=== PATIENT | male | born 1955 | race Caucasian/White ===

== ENCOUNTER 2019-09-13 01:54 | Inpatient (IN) | payer MEDICAID ==
--- NOTE | 2019-09-13 02:24 | EDM.PDOC ---
ED HPI GENERAL MEDICAL PROBLEM - General Chief Complaint: Gastrointestinal Problem Stated Complaint: RECTAL BLEEDING Time Seen by Provider: 09/13/19 02:17 Source of Information: Reports: Patient History Limitations: Reports: No Limitations - History of Present Illness INITIAL COMMENTS - FREE TEXT/NARRATIVE: Patient presents after an episode this evening of rectal bleeding. He has a history of 2 cardiac stents placed in July following episodes of exertional chest tightness and exertional dyspnea. He has been participating in cardiac rehabilitation locally since the stents were placed and attends that uneventfully. He is on aspirin 81 mg and Plavix 75 mg daily since his stents. Several days ago, he began to get an upper abdominal discomfort/burning feeling/ fullness sensation. No nausea or vomiting. He previously had an upper GI hemorrhage in 2016 but living in the [place] area. Endoscopy showed what sounds like some type of proximal duodenal lesion which was clamped or cauterized in someway. He has noticed, when moving around home in the last few days that he was getting dizzy when he stood up and also would have some shortness of breath when climbing stairs in their home. He got up to go to the bathroom earlier today and when standing up and walking he felt off balance enough that he actually bumped into the wall. He felt as though he needed to have a bowel movement tonight, went into the bathroom and had only a small amount of stool produced. He was getting up to leave again and then had a feeling like another bowel movement was pending and with that he had piece of maroon-colored stool along with a variety of other softer stool-like material. Based on the constellation of all of those symptoms, he came here for further evaluation. He was seen by his irish moss gatherer 2 weeks post stenting but no changes were made to medications at that time. Onset: Today Duration: Hour(s): Improves with: Reports: None Worsens with: Reports: None - Related Data Allergies Allergy/AdvReac Type Severity Reaction Status Date / Time fish oil Allergy Airway Verified 09/13/19 02:08 Tightness Home Meds: Home Meds Aspirin [Halfprin] 81 mg PO DAILY 07/03/19 [History] Fenofibrate 160 mg PO BEDTIME 07/03/19 [History] Insulin Glargine,Hum.Rec.Anlog [Basaglar Marbinikpen U-100] 20 unit SQ DAILY [History] Losartan [Cozaar] 25 mg PO BEDTIME 07/03/19 [History] Pravastatin Sodium 80 mg PO DAILY 07/03/19 [History] metFORMIN [Glucophage XR] 500 mg PO DAILY 07/03/19 [History] Clopidogrel Bisulfate [Clopidogrel] 75 mg PO DAILY 09/13/19 [History] Rosuvastatin Calcium 20 mg PO BEDTIME 09/13/19 [History] ED ROS GENERAL - Review of Systems Review Of Systems: See Below Constitutional: Denies: Night Sweats HEENT: Reports: No Symptoms Respiratory: Reports: Shortness of Breath (When climbing stairs in their home and other ambulatory activity. He does not get short of breath during cardiac rehabilitation) Cardiovascular: Denies: Chest Pain GI/Abdominal: Reports: Abdominal Pain (Until 2 days ago.), Black Stool, Bloody Stool : Reports: No Symptoms Musculoskeletal: Reports: No Symptoms Neurological: Reports: Dizziness (When standing up.) ED EXAM, GI/ABD - Physical Exam Exam: See Below Text/Narrative:: He is lying on the bed in room 4 in no distress. Exam Limited By: No Limitations General Appearance: Alert, No Apparent Distress Respiratory/Chest: Lungs Clear Cardiovascular: Regular Rate, Rhythm, Tachycardia GI/Abdominal Exam: Normal Bowel Sounds, Soft, Non-Tender Rectal (Males) Exam: Normal Rectal Tone, Black Stool Course - Re-Assessments/Exams Free Text/Narrative Re-Assessment/Exam: 09/13/19 03:02 Given his description of stool changes tonight and other constitutional symptoms , he likely is having some type of gastrointestinal hemorrhage and the most likely cause would be something related to his anticoagulant use. 09/13/19 03:08 Orthostatic vital signs show a systolic pressure of 133 supine with decrease to low 100 values upon taking the sitting and standing positions. Heart rate has been in the low 100s generally. When he stood he briefly had some dizziness sensation. 09/13/19 04:07 I reviewed labs with him which show a BUNs of 51 and a hemoglobin of 11.7. He will need admission for serial monitoring and possible endoscopy. I reviewed the case with hospital service to arrange admission and further evaluation. He' ll be given a Protonix 80 mg bolus. Departure - Departure Time of Disposition: 04:05 Disposition: Admitted As Inpatient 66 Condition: Fair Clinical Impression: Gastrointestinal hemorrhage - Discharge Information Referrals: Roiko,Seun, SUPERVISOR [employer] [Primary Care Provider] -
[2019-09-13] MEDS ORDERED: Sodium Chloride 0.9% 10 ML Syringe FLUSH PRN (02:49)
[2019-09-13] MEDS ORDERED: Pantoprazole 40 MG Vial IVPUSH SCH (04:15)
[2019-09-13] MEDS: Sodium Chloride 0.9% 1,000 ML IV SCH ×3 (05:24→18:57)
[2019-09-13] MEDS ORDERED: Morphine 2 MG/ML Syringe IVPUSH PRN (05:34)
[2019-09-13] MEDS ORDERED: oxyCODONE 5 MG Tab PO PRN (05:34)
[2019-09-13] MEDS ORDERED: Ondansetron 4 MG Tab.DIS PO PRN (05:34)
[2019-09-13] MEDS ORDERED: Acetaminophen 325 MG Tab PO PRN (05:34)
[2019-09-13] MEDS ORDERED: Albuterol 0.083% 2.5 MG/3 ML Neb Soln NEB PRN (05:34)
[2019-09-13] MEDS ORDERED: Pantoprazole 40 MG Vial IV SCH ×2 (05:34→16:00)
[2019-09-13] MEDS ORDERED: Ondansetron 4 MG/2 ML SDV IV PRN (05:34)
[2019-09-13] MEDS ORDERED: Melatonin 3 MG Tab PO PRN (05:34)
[2019-09-13] MEDS ORDERED: Sodium Chloride 0.9% 1,000 ML IV ONE (06:12)
[2019-09-13] MEDS ORDERED: EPINEPHrine 1 MG/ML SDV ONE (07:01)
--- NOTE | 2019-09-13 07:01 | PCM.HP.2 ---
H&P History of Present Illness - General Date of Service: 09/13/19 Admit Problem/Dx: Admission Diagnosis/Problem Admission Diagnosis/Problem Gastrointestinal hemorrhage Source of Information: Patient, Family, Provider, RN History Limitations: Reports: No Limitations - History of Present Illness Initial Comments - Free Text/Narative: chief complaint: bloody stool This is a 64 year old male presents to the ER with Carmela via POV. He reports abdominal pain for the past 2 days, this morning at 0100 got up to go to the bathroom - had a large red colored stool became very sweating and nearly fainted. He then got up and almost fell over again. decided come to the ER. Past history of GI bleed on March 2016, he had EGD which showed a bleeding ulcer. Colonoscopy age 50 yrs an at 60 yrs, with last one September 2016. showed a diverticulitis without active bleeding. Cardiac: 07-22-2019 stents placed x 2 for blockage. last cardiac appt. 2018 reports all is well. has been going to Cardiac Rehab for the past 3 weeks. Onset of Symptoms: Reports: Today, Gradual (abdominal pain for 2 days) Duration of Symptoms: Reports: Hour(s): Location: Reports: Abdomen Quality: Reports: Ache, Burning Severity: Mild Improves with: Reports: None Worsens with: Reports: None Associated Symptoms: Reports: Diaphoresis, Nausea/Vomiting (nausea without vomiting), Shortness of Breath (chronic since August 2019), Syncope, Weakness - Related Data Allergies/Adverse Reactions: Allergies Allergy/AdvReac Type Severity Reaction Status Date / Time fish oil Allergy Airway Verified 09/13/19 02:08 Tightness Home Medications: Home Meds Aspirin [Halfprin] 81 mg PO DAILY 07/03/19 [History] Fenofibrate 160 mg PO BEDTIME 07/03/19 [History] Insulin Glargine,Hum.Rec.Anlog [Basaglar Kwikpen U-100] 20 unit SQ DAILY [History] Losartan [Cozaar] 25 mg PO BEDTIME 07/03/19 [History] Pravastatin Sodium 80 mg PO DAILY 07/03/19 [History] metFORMIN [Glucophage XR] 500 mg PO DAILY 07/03/19 [History] Clopidogrel Bisulfate [Clopidogrel] 75 mg PO DAILY 09/13/19 [History] Rosuvastatin Calcium 20 mg PO BEDTIME 09/13/19 [History] Past Medical History HEENT History: Reports: Impaired Vision Cardiovascular History: Reports: High Cholesterol, Stents, Other (See Below) Other Cardiovascular History: leaky valve, stents july 22 2019 Gastrointestinal History: Reports: GERD, GI Bleed Genitourinary History: Reports: Renal Calculus Musculoskeletal History: Reports: Fracture Endocrine/Metabolic History: Reports: Diabetes, Type II - Infectious Disease History Infectious Disease History: Reports: Chicken Pox - Past Surgical History GI Surgical History: Reports: Hernia, Inguinal Social & Family History - Family History Family Medical History: Noncontributory - Tobacco Use Smoking Status *Q: Never Smoker - Caffeine Use Caffeine Use: Reports: Coffee - Alcohol Use Days Per Week of Alcohol Use: 7 Number of Drinks Per Day: 1 Total Drinks Per Week: 7 - Recreational Drug Use Recreational Drug Use: No - Living Situation & Occupation Living situation: Reports: 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 Enjoying half-way.) H&P Review of Systems - Review of Systems: Review Of Systems: See Below General: Reports: Malaise, Other (reports no concerns at this time.) HEENT: Reports: No Symptoms Pulmonary: Reports: Shortness of Breath (for the past 3 to 4 weeks.) Cardiovascular: Reports: Dyspnea on Exertion, Lightheadedness Gastrointestinal: Reports: Abdominal Pain, Black Stool, Bloody Stool, Hematemesis, Nausea, Vomiting Genitourinary: Reports: No Symptoms Musculoskeletal: Reports: No Symptoms Skin: Reports: Pallor Psychiatric: Reports: No Symptoms Neurological: Reports: Syncope (near syncope after having a bowel movement prior to transfer to Inpatient), Weakness Hematologic/Lymphatic: Reports: Other (history of GI bleed 2015) Immunologic: Reports: No Symptoms Exam - Exam Exam: See Below - Vital Signs Vital Signs: Last Vital Signs Temp 35.3 C 09/13/19 02:28 Pulse 73 09/13/19 06:41 Resp 11 L 09/13/19 06:41 BP 112/64 09/13/19 06:41 Pulse Ox 96 09/13/19 06:41 Orthostatic Blood Pressure [ 106/64 Standing] Orthostatic Blood Pressure [ 100/59 Sitting] Orthostatic Blood Pressure [ 133/69 Supine] Weight: 88.8 kg - Exam Quality Assessment: Other General: Alert, Oriented, Cooperative, Moderate Distress HEENT: PERRLA, Conjunctiva Clear, EACs Clear, EOMI, Hearing Intact, Mucosa Moist & [place], Nares Patent Neck: Supple, Trachea Midline Lungs: Clear to Auscultation, Normal Respiratory Effort, Other Cardiovascular: Regular Rate, Regular Rhythm, Normal S1, Normal S2, Other ( murmur noted, has been evaluated by Cardiology - advised to monitor) GI/Abdominal Exam: Soft, Abnormal Bowel Sounds (hypoactive), Other (0545 vomiting and near syncope - bright red bobby and darker blood noted about 15 cc) (Male) Exam: Deferred Rectal (Males) Exam: Deferred, Black Stool, Bloody Stool, Heme + Stool, Other ( at 0545 patient walked to bathroom had a large black red stool, became symptomatic) Extremities: Normal Inspection, Normal Range of Motion, Non-Tender, No Pedal Edema, Normal Capillary Refill Peripheral Pulses: 2+: Radial (L), Radial (R) Skin: Cool, Moist Neurological: Reflexes Equal Bilateral, Strength Equal Bilateral Neuro Extensive - Mental Status: Alert, Oriented x3, Normal Mood/Affect Psychiatric: Alert, Normal Affect, Normal Mood - Patient Data Lab Results Last 24 hrs: Laboratory Results - last 24 hr 09/13/19 09/13/19 09/13/19 Range/Units 02:50 02:52 02:55 WBC 9.8 (4.5-11.0) K/uL RBC 3.90 L (4.30-5.90) M/uL Hgb 11.7 L (12.0-15.0) g/dL Hct 35.8 L (40.0-54.0) % MCV 92 (80-98) fL MCH 30 (27-31) pg MCHC 33 (32-36) % Plt Count 156 (150-400) K/uL Neut % (Auto) 72 H (36-66) % Lymph % (Auto) 16 L (24-44) % Mckinley % (Auto) 9 H (2-6) % Eos % (Auto) 2 (2-4) % Baso % (Auto) 1 (0-1) % PT (9.5-12.0) sec INR (0.80-1.20) Sodium 140 (140-148) mmol/L Potassium 5.0 (3.6-5.2) mmol/L Chloride 107 (100-108) mmol/L Carbon Dioxide 25 (21-32) mmol/L Anion Gap 7.7 (5.0-14.0) mmol/L BUN 52 H (7-18) mg/dL Creatinine 1.2 (0.8-1.3) mg/dL Est Cr Clr Drug Dosing 72.31 mL/min Estimated GFR (MDRD) > 60 (>60) Glucose 207 H (74-106) mg/dL Calcium 8.7 (8.5-10.1) mg/dL Total Bilirubin 0.5 (0.2-1.0) mg/dL AST 12 L (15-37) U/L ALT 15 (12-78) U/L Alkaline Phosphatase 51 (46-116) U/L Total Protein 6.2 L (6.4-8.2) g/dL Albumin 2.8 L (3.4-5.0) g/dL Globulin 3.4 (2.3-3.5) g/dL Albumin/Globulin Ratio 0.8 L (1.2-2.2) Blood Type O POSITIVE Crossmatch See Detail 09/13/19 Range/Units 02:55 WBC (4.5-11.0) K/uL RBC (4.30-5.90) M/uL Hgb (12.0-15.0) g/dL Hct (40.0-54.0) % MCV (80-98) fL MCH (27-31) pg MCHC (32-36) % Plt Count (150-400) K/uL Neut % (Auto) (36-66) % Lymph % (Auto) (24-44) % Mckinley % (Auto) (2-6) % Eos % (Auto) (2-4) % Baso % (Auto) (0-1) % PT 14.0 H (9.5-12.0) sec INR 1.32 H (0.80-1.20) Sodium (140-148) mmol/L Potassium (3.6-5.2) mmol/L Chloride (100-108) mmol/L Carbon Dioxide (21-32) mmol/L Anion Gap (5.0-14.0) mmol/L BUN (7-18) mg/dL Creatinine (0.8-1.3) mg/dL Est Cr Clr Drug Dosing mL/min Estimated GFR (MDRD) (>60) Glucose (74-106) mg/dL Calcium (8.5-10.1) mg/dL Total Bilirubin (0.2-1.0) mg/dL AST (15-37) U/L ALT (12-78) U/L Alkaline Phosphatase (46-116) U/L Total Protein (6.4-8.2) g/dL Albumin (3.4-5.0) g/dL Globulin (2.3-3.5) g/dL Albumin/Globulin Ratio (1.2-2.2) Blood Type Crossmatch Result Diagrams: 09/13/19 02:55 09/13/19 02:52 Jose Results Last 24 hrs: Microbiology 09/13/19 03:48 Stool Occult Blood (JOSE) - Final Stool / Feces Sepsis Event Note - Evaluation Sepsis Screening Result: No Definite Risk - Focused Exam Vital Signs: Vital Signs Temp Pulse Resp BP Pulse Ox 09/13/19 06:41 73 11 L 112/64 96 09/13/19 06:26 78 12 105/60 96 09/13/19 06:10 79 16 105/60 96 09/13/19 04:11 72 18 119/60 09/13/19 02:28 35.3 C 100 14 108/69 98 09/13/19 02:27 35.3 C 100 14 108/69 98 Date Exam was Performed: 09/13/19 Time Exam was Performed: 06:50 - Problem List (1) Gastrointestinal hemorrhage SNOMED Code(s): 06676865 ICD Code: K92.2 - GASTROINTESTINAL HEMORRHAGE, UNSPECIFIED Status: Acute Priority: High Current Visit: Yes Qualifiers: GI bleed type/associated pathology: unspecified gastrointestinal hemorrhage type Qualified Code(s): K92.2 - Gastrointestinal hemorrhage, unspecified (2) Diabetes type 2, controlled SNOMED Code(s): 66869453, 542657305 ICD Code: E11.9 - TYPE 2 DIABETES MELLITUS WITHOUT COMPLICATIONS Status: Acute Priority: High Current Visit: Yes Qualifiers: Diabetes mellitus termite technician insulin use: with termite technician use (3) History of heart artery stent SNOMED Code(s): 134845303, 001081411 ICD Code: Z95.5 - PRESENCE OF CORONARY ANGIOPLASTY IMPLANT AND GRAFT Status : Chronic Priority: Low Current Visit: Yes Problem List Initiated/Reviewed/Updated: Yes Orders Last 24hrs: Active Orders 24 hr Category Date Time Status Transfer Patient (Change bed) [ADT] Routine ADT 09/13/19 06:33 Ordered Ambulate [RC] QID Care 09/13/19 05:34 Active Cardiac Monitoring [RC] CONTINUOUS Care 09/13/19 05:34 Active EKG Documentation Completion [RC] ASDIRECTED Care 09/13/19 06:12 Active Head of Bed Elevation [RC] ASDIRECTED Care 09/13/19 05:34 Active Intake and Output [RC] QSHIFT Care 09/13/19 05:34 Active Notify Provider Consults [RC] ASDIRECTED Care 09/13/19 05:34 Active Notify Provider Vital Signs [RC] ASDIRECTED Care 09/13/19 05:34 Active Oxygen Therapy [RC] PRN Care 09/13/19 05:34 Active Pulse Oximetry [RC] PRN Care 09/13/19 05:34 Active RT Aerosol Therapy [RC] ASDIRECTED Care 09/13/19 05:34 Active Up ad Hermelinda [RC] ASDIRECTED Care 09/13/19 05:34 Active VTE/DVT Education [RC] Per Unit Routine Care 09/13/19 05:34 Active Vital Signs [RC] Q4H Care 09/13/19 05:34 Active Consult to Physician [CONS] Routine Cons 09/13/19 05:34 Ordered Nothing per Oral Now Diet [DIET] Diet 09/13/19 Breakfast Active BASIC METABOLIC PANEL,BMP [CHEM] AM Lab 09/14/19 05:11 Ordered CBC WITH AUTO DIFF [HEME] AM Lab 09/14/19 05:11 Ordered HEMOGLOBIN [HEME] Routine Lab 09/13/19 06:43 Received HEMOGLOBIN/HEMATOCRIT,HH [HEME] Routine Lab 09/13/19 11:10 Ordered PATIENT RETYPE [BBK] Urgent Lab 09/13/19 02:50 Results RED BLOOD CELLS LP [BBK] Urgent Lab 09/13/19 02:50 Results TROPONIN I [CHEM] Urgent Lab 09/13/19 06:12 Ordered TYPE AND SCREEN [BBK] Urgent Lab 09/13/19 02:50 Results Acetaminophen [Tylenol] Med 09/13/19 05:34 Active 650 mg PO Q4H PRN Albuterol [Proventil Neb Soln] Med 09/13/19 05:34 Active 2.5 mg NEB Q4H PRN Insulin Glarg,Human.Rec.Analog [LantUS Solostar] Med 09/13/19 09:00 Active 20 units SUBCUT DAILY Losartan [Cozaar] Med 09/13/19 21:00 Active 25 mg PO BEDTIME Melatonin Med 09/13/19 05:34 Active 6 mg PO BEDTIME PRN Morphine Med 09/13/19 05:34 Active 2 mg IVPUSH Q2H PRN Ondansetron [Zofran ODT] Med 09/13/19 05:34 Active 4 mg PO Q6H PRN Ondansetron [Zofran] Med 09/13/19 05:34 Active 4 mg IV Q4H PRN Pantoprazole [ProTONIX IV] Med 09/13/19 05:34 Active 40 mg IV Q12H Pravastatin Sodium [Pravastatin Sodium] Med 09/13/19 21:00 Active 80 mg PO BEDTIME Sodium Chloride 0.9% [Normal Saline] 1,000 ml Med 09/13/19 05:15 Active IV ASDIRECTED Sodium Chloride 0.9% [Saline Flush] Med 09/13/19 02:49 Active 10 ml FLUSH ASDIRECTED PRN oxyCODONE Med 09/13/19 05:34 Active 5 mg PO Q4H PRN Resuscitation Status Routine Resus Stat 09/13/19 05:11 Ordered EKG 12 Lead [EK] Urgent Ther 09/13/19 06:12 Ordered Medication Orders Acetaminophen (Tylenol) 650 mg PO Q4H PRN PRN Reason: Pain (Mild 1-3)/fever Albuterol (Proventil Neb Soln) 2.5 mg NEB Q4H PRN PRN Reason: Shortness Of Breath/wheezing Sodium Chloride (Normal Saline) 1,000 mls @ 125 mls/hr IV ASDIRECTED ISABEL Last Admin: 09/13/19 05:24 Dose: 125 mls/hr Insulin Glargine (Lantus Solostar) 20 units SUBCUT DAILY ISABEL Losartan Potassium (Cozaar) 25 mg PO BEDTIME ISABEL Melatonin (Melatonin) 6 mg PO BEDTIME PRN PRN Reason: Sleep Morphine Sulfate (Morphine) 2 mg IVPUSH Q2H PRN PRN Reason: Pain (severe 7-10) Non-Formulary Medication (Pravastatin Sodium [Pravastatin Sodium]) 80 mg PO BEDTIME ISABEL Ondansetron HCl (Zofran Odt) 4 mg PO Q6H PRN PRN Reason: Nausea able to take PO Ondansetron HCl (Zofran) 4 mg IV Q4H PRN PRN Reason: Nausea/Vomiting Oxycodone HCl (Oxycodone) 5 mg PO Q4H PRN PRN Reason: Pain (moderate 4-6) Pantoprazole Sodium (Protonix Iv) 40 mg IV Q12H ISABEL Sodium Chloride (Saline Flush) 10 ml FLUSH ASDIRECTED PRN PRN Reason: Keep Vein Open Assessment/Plan Comment:: ASSESSMENT / PLAN chief complaint: bloody stool This is a 64 year old male presents to the ER with Carmela via POV. He reports abdominal pain for the past 2 days, this morning at 0100 got up to go to the bathroom - had a large red colored stool became very sweating and nearly fainted. He then got up and almost fell over again. decided come to the ER. Past history of GI bleed on March 2016, he had EGD which showed a bleeding ulcer. Colonoscopy age 50 yrs an at 60 yrs, with last one September 2016. showed a diverticulitis without active bleeding. Cardiac: 07-22-2019 stents placed x 2 for blockage. last cardiac appt. 2018 reports all is well. has been going to Cardiac Rehab for the past 3 weeks. Lab values = CBC unremarkable WBC 9.8 hemoglobin 11.7 hemocrit 35.8, INR 1.32, BUN 52, Cr. 1.2, Glucose 207. IN ER given IV Protonix 80 mg. Mr. Avilez was in the process of being transferred to [address] [place] [address], when he went to the bathroom at 0545, had a large dark and bloody stool, vomited mucous and red blood, very ashen-near white in color, diaphoresis, unable to read a blood pressure, near fainted, with the help of [address] in a wheelchair, returned to bed. blood pressure at 106/59. able to answer question. very calm. New ordered: Contacted Dr. Zepeda - he will do EGD this morning - Patient and notified of this and agree with plan of care. Contacted Dr. Frazier, Hospitalist - transfer care to ICU -2 nd IV access, give 1 liter of fluid now. -stat labs - troponin, blood glucose, hemoglobin, EKG -athletic monitor -type and cross for 4 units of blood total -ICU status GI Bleed - Mr. Avilez will be going to surgery first then ICU bed after surgery. Patient and agree with plan of care. -Admit to ICU -NPO -IV Fluids Normal Saline at 125 mL per hour -IV Protonix 40 mg every 12 hours -serial hemoglobins. -anti nausea medication ordered -And a.m. labs: CBC, BMP History of Cardiac Stents x2 07-22-2019 -continue cardiac medication -telemetry Diabetes type 2 - reports takes insulin daily, had been a diabetic for at least 15 years or more. -Long acting insulin 20 units daily -bedside blood glucose 4 times a day Maintenance issues -Orders home meds reviewed and ordered as appropriate -Nutrition: NPO -Longo catheter not indicated at this time -DVT: SCD -PPI; IV Protonix 40mg every 12 hours CODE STATUS: FULL Admission status: Admit to ICU This Patient is Admitted for Inpatient Services and is Medically Appropriate and Meets Medical Necessity for Inpatient Admission. I Reasonably Expect the Patient will Require Inpatient Services that Span a Period of Over 2 Midnights. My Rationale for Medically Necessary Inpatient Care will be Found in the Admission History & Physical and Progress Notes. I Reasonably Expect the Patient to be Discharged or Transferred within 96 Hours After Admission to this Critical [facility] Hospital. Disposition: home Primary care provider: Seun Cuellar NP Hospitalist: Dr. Frazier - Mortality Measure Prognosis:: Good
[2019-09-13] MEDS ORDERED: Midazolam 1 MG/ML 2 ML SDV ONE (07:36)
[2019-09-13] MEDS ORDERED: fentaNYL 100 MCG/2 ML SDV ONE (07:36)
[2019-09-13] MEDS ORDERED: Propofol 200 MG/20 ML SDV ONE (07:36)
[2019-09-13] MEDS ORDERED: Octreotide 100 MCG/ML SDV IVPUSH ONE (08:15)
[2019-09-13] MEDS: Sodium Chloride 0.9% 100 ML with Pantoprazole 80 MG IV SCH ×4 (08:59→18:36)
[2019-09-13] MEDS: Octreotide 500 MCG in Sodium Chloride 0.9% 497.5 ML IV SCH ×2 (08:59→19:18)
[2019-09-13] MEDS: Insulin Glargine,Human Rec. Analog 100 Units/ML 3 ML Pen SUBCUT SCH (09:00)
[2019-09-13] MEDS ORDERED: Glucose Gel 15 GM in 37.5 GM Tube PO PRN (09:04)
[2019-09-13] MEDS ORDERED: 50% Dextrose in Water 50 ML Syringe IV PRN (09:04)
--- NOTE | 2019-09-13 09:10 | PCM.PN ---
- General Info Date of Service: 09/13/19 Subjective Update: Mr. Avilez is a 64-year-old gentleman who was admitted earlier this morning with hematemesis and melena, weakness, lightheadedness, secondary to an upper GI bleed. He has noted some epigastric abdominal discomfort which was fairly mild over the past few days. Yesterday he experienced shortness of breath weakness and lightheadedness with activity. He awoke early this morning and felt very weak and lightheaded, then had a melenic appearing stool. He came into the emergency department for further evaluation. Initial hemoglobin level was 11.7, with stable vital signs. Initial plan had been for admission to the medical surgical floor, but while still in the emergency department had an episode of marked weakness with hypotension and diaphoresis. During that period of time had a large melenic appearing stool and also an episode of hematemesis. He has been seen and evaluated by Dr. Zepeda, EGD was performed showing 3 duodenal ulcers, 1 of which had a clot at the base. He was not actively bleeding at the time of EGD. - Review of Systems General: Reports: Weakness. Denies: Fever, Chills Pulmonary: Reports: Shortness of Breath. Denies: Pleuritic Chest Pain, Cough, Sputum, Hemoptysis, Wheezing Cardiovascular: Reports: Dyspnea on Exertion, Lightheadedness. Denies: Chest Pain, Palpitations, Orthopnea, PND, Edema Gastrointestinal: Reports: Abdominal Pain, Melena, Nausea, Vomiting, Other ( Hematemesis). Denies: Difficulty Swallowing, Hematochezia - Patient Data Vitals - Most Recent: Last Vital Signs Temp 97.9 F 09/13/19 08:32 Pulse 74 09/13/19 08:32 Resp 13 09/13/19 08:32 BP 105/56 L 09/13/19 08:32 Pulse Ox 95 09/13/19 08:45 Orthostatic Blood Pressure [ 106/64 Standing] Orthostatic Blood Pressure [ 100/59 Sitting] Orthostatic Blood Pressure [ 133/69 Supine] Weight - Most Recent: 201 lb 6.4 oz Lab Results Last 24 Hours: Laboratory Results - last 24 hr 09/13/19 09/13/19 09/13/19 Range/Units 02:50 02:52 02:55 WBC 9.8 (4.5-11.0) K/uL RBC 3.90 L (4.30-5.90) M/uL Hgb 11.7 L (12.0-15.0) g/dL Hct 35.8 L (40.0-54.0) % MCV 92 (80-98) fL MCH 30 (27-31) pg MCHC 33 (32-36) % Plt Count 156 (150-400) K/uL Neut % (Auto) 72 H (36-66) % Lymph % (Auto) 16 L (24-44) % [place] % (Auto) 9 H (2-6) % Eos % (Auto) 2 (2-4) % Baso % (Auto) 1 (0-1) % PT (9.5-12.0) sec INR (0.80-1.20) Sodium 140 (140-148) mmol/L Potassium 5.0 (3.6-5.2) mmol/L Chloride 107 (100-108) mmol/L Carbon Dioxide 25 (21-32) mmol/L Anion Gap 7.7 (5.0-14.0) mmol/L BUN 52 H (7-18) mg/dL Creatinine 1.2 (0.8-1.3) mg/dL Est Cr Clr Drug Dosing 72.31 mL/min Estimated GFR (MDRD) > 60 (>60) Glucose 207 H (74-106) mg/dL Calcium 8.7 (8.5-10.1) mg/dL Total Bilirubin 0.5 (0.2-1.0) mg/dL AST 12 L (15-37) U/L ALT 15 (12-78) U/L Alkaline Phosphatase 51 (46-116) U/L Troponin I (0.000-0.056) ng/mL Total Protein 6.2 L (6.4-8.2) g/dL Albumin 2.8 L (3.4-5.0) g/dL Globulin 3.4 (2.3-3.5) g/dL Albumin/Globulin Ratio 0.8 L (1.2-2.2) Blood Type O POSITIVE Gel Antibody Screen Negative Crossmatch See Detail 09/13/19 09/13/19 09/13/19 Range/Units 02:55 06:12 06:43 WBC (4.5-11.0) K/uL RBC (4.30-5.90) M/uL Hgb 10.0 L (12.0-15.0) g/dL Hct (40.0-54.0) % MCV (80-98) fL MCH (27-31) pg MCHC (32-36) % Plt Count (150-400) K/uL Neut % (Auto) (36-66) % Lymph % (Auto) (24-44) % [place] % (Auto) (2-6) % Eos % (Auto) (2-4) % Baso % (Auto) (0-1) % PT 14.0 H (9.5-12.0) sec INR 1.32 H (0.80-1.20) Sodium (140-148) mmol/L Potassium (3.6-5.2) mmol/L Chloride (100-108) mmol/L Carbon Dioxide (21-32) mmol/L Anion Gap (5.0-14.0) mmol/L BUN (7-18) mg/dL Creatinine (0.8-1.3) mg/dL Est Cr Clr Drug Dosing mL/min Estimated GFR (MDRD) (>60) Glucose (74-106) mg/dL Calcium (8.5-10.1) mg/dL Total Bilirubin (0.2-1.0) mg/dL AST (15-37) U/L ALT (12-78) U/L Alkaline Phosphatase (46-116) U/L Troponin I < 0.017 (0.000-0.056) ng/mL Total Protein (6.4-8.2) g/dL Albumin (3.4-5.0) g/dL Globulin (2.3-3.5) g/dL Albumin/Globulin Ratio (1.2-2.2) Blood Type Gel Antibody Screen Crossmatch Jose Results Last 24 Hours: Microbiology 09/13/19 03:48 Stool Occult Blood (JOSE) - Final Stool / Feces Med Orders - Current: Current Medications Acetaminophen (Tylenol) 650 mg PO Q4H PRN PRN Reason: Pain (Mild 1-3)/fever Albuterol (Proventil Neb Soln) 2.5 mg NEB Q4H PRN PRN Reason: Shortness Of Breath/wheezing Aspirin (Halfprin) 81 mg PO DAILY [facility] Clopidogrel Bisulfate (Plavix) 75 mg PO DAILY [facility] Dextrose (Glutose 15) 15 gm PO ONETIME PRN PRN Reason: Hypoglycemia Dextrose/Water (Dextrose 50% In Water) 50 ml IV ONETIME PRN PRN Reason: Hypoglycemia Sodium Chloride (Normal Saline) 1,000 mls @ 125 mls/hr IV ASDIRECTED [facility] Last Admin: 09/13/19 05:24 Dose: 125 mls/hr Octreotide Acetate 500 mcg/ (Sodium Chloride) 500 mls @ 50 mls/hr IV Q10H [facility] Last Admin: 09/13/19 08:59 Dose: 50 mcg/hr, 50 mls/hr Pantoprazole Sodium 80 mg/ (Sodium Chloride) 100 mls @ 10 mls/hr IV .Q10H [facility] Last Admin: 09/13/19 08:59 Dose: 10 mls/hr Insulin Glargine (Lantus Solostar) 20 units SUBCUT DAILY [facility] Last Admin: 09/13/19 09:00 Dose: 20 units Insulin Human Lispro (Humalog) 0 unit SUBCUT QIDACANDBED [facility]; Protocol Losartan Potassium (Cozaar) 25 mg PO BEDTIME [facility] Melatonin (Melatonin) 6 mg PO BEDTIME PRN PRN Reason: Sleep Morphine Sulfate (Morphine) 2 mg IVPUSH Q2H PRN PRN Reason: Pain (severe 7-10) Non-Formulary Medication (Rosuvastatin Calcium [Rosuvastatin Calcium]) 20 mg PO BEDTIME [facility] Ondansetron HCl (Zofran Odt) 4 mg PO Q6H PRN PRN Reason: Nausea able to take PO Ondansetron HCl (Zofran) 4 mg IV Q4H PRN PRN Reason: Nausea/Vomiting Oxycodone HCl (Oxycodone) 5 mg PO Q4H PRN PRN Reason: Pain (moderate 4-6) Pravastatin Sodium (Pravachol) 80 mg PO BEDTIME [facility] Sodium Chloride (Saline Flush) 10 ml FLUSH ASDIRECTED PRN PRN Reason: Keep Vein Open Discontinued Medications Epinephrine HCl (Adrenalin) Confirm Administered Dose 1 mg .ROUTE .STK-MED ONE Stop: 09/13/19 07:02 Fentanyl (Sublimaze) Confirm Administered Dose 100 mcg .ROUTE .STK-MED ONE Stop: 09/13/19 07:37 Sodium Chloride (Normal Saline) 1,000 mls @ 999 mls/min IV .BOLUS ONE Stop: 09/13/19 06:13 Last Admin: 09/13/19 06:24 Dose: 999 mls/min Midazolam HCl (Versed 1 Mg/Ml) Confirm Administered Dose 2 mg .ROUTE .STK-MED ONE Stop: 09/13/19 07:37 Octreotide Acetate (Sandostatin) 50 mcg IVPUSH ONETIME ONE Stop: 09/13/19 08:16 Last Admin: 09/13/19 08:33 Dose: 50 mcg Pantoprazole Sodium (Protonix Iv) 80 mg IVPUSH .BOLUS [facility] Last Admin: 09/13/19 04:16 Dose: 80 mg Pantoprazole Sodium (Protonix Iv) 40 mg IV Q12H [facility] Propofol (Diprivan 20 Ml) Confirm Administered Dose 200 mg .ROUTE .STK-MED ONE Stop: 09/13/19 07:37 - Exam General: Alert, Oriented, Cooperative, Mild Distress Lungs: Clear to Auscultation, Normal Respiratory Effort Cardiovascular: Regular Rate, Regular Rhythm, No Murmurs GI/Abdominal Exam: Soft, Non-Tender, No Organomegaly, No Distention Extremities: Non-Tender, No Pedal Edema Sepsis Event Note - Evaluation Sepsis Screening Result: No Definite Risk - Focused Exam Vital Signs: Vital Signs Temp Temp Pulse Resp BP BP Pulse Ox 09/13/19 08:45 95 09/13/19 08:32 97.9 F 74 13 105/56 L 95 09/13/19 08:20 97.2 F 68 16 96/52 L 100 09/13/19 08:15 62 14 87/44 L 100 09/13/19 08:10 68 14 75/46 L 100 09/13/19 08:05 72 18 68/43 L 99 09/13/19 08:00 97.3 F 68 20 73/42 L 99 09/13/19 07:11 77 14 123/64 99 09/13/19 06:41 73 11 L 112/64 96 09/13/19 06:26 78 12 105/60 96 09/13/19 06:10 79 16 105/60 96 09/13/19 04:11 72 18 119/60 09/13/19 02:28 95.5 F 100 14 108/69 98 12/13/19 02:27 95.5 F 100 14 108/69 98 Date Exam was Performed: 09/13/19 Time Exam was Performed: 09:05 - Problem List Review Problem List Initiated/Reviewed/Updated: Yes - My Orders Last 24 Hours: My Active Orders 09/13/19 09:00 Octreotide [SandoSTATIN] 500 mcg Sodium Chloride 0.9% [Normal Saline] 497.5 ml IV Q10H Sodium Chloride 0.9% [Normal Saline] 100 ml Pantoprazole [ProTONIX IV] 80 mg IV 10 mls/hr 09/13/19 09:04 Blood Glucose Check, Bedside [RC] QIDACANDBED Communication Order [RC] STAT Diabetes Education [RC] Click to Edit Notify Provider [RC] PRN Dextrose 50% in Water 50 ml IV ONETIME PRN Dextrose [Glutose 15] 15 gm PO ONETIME PRN 09/13/19 11:00 HGB [HEMOGLOBIN] [HEME] Stat Insulin Lispro [HumaLOG] See Protocol SUBCUT QIDACANDBED 09/13/19 11:30 GLUCOSE POC LAB TO COLLECT [POC] QIDACANDBED 09/13/19 16:30 GLUCOSE POC LAB TO COLLECT [POC] QIDACANDBED 09/13/19 17:00 HGB [HEMOGLOBIN] [HEME] Stat 09/13/19 21:00 GLUCOSE POC LAB TO COLLECT [POC] QIDACANDBED Rosuvastatin Calcium [Rosuvastatin Calcium] 20 mg PO BEDTIME 09/13/19 23:00 HGB [HEMOGLOBIN] [HEME] Stat 09/13/19 Breakfast Clear Liquid Diet [DIET] 09/14/19 07:30 GLUCOSE POC LAB TO COLLECT [POC] QIDACANDBED 09/14/19 09:00 Aspirin [Halfprin] 81 mg PO DAILY Clopidogrel [Plavix] 75 mg PO DAILY 09/14/19 11:30 GLUCOSE POC LAB TO COLLECT [POC] QIDACANDBED 09/14/19 16:30 GLUCOSE POC LAB TO COLLECT [POC] QIDACANDBED 09/14/19 21:00 GLUCOSE POC LAB TO COLLECT [POC] QIDACANDBED 09/15/19 07:30 GLUCOSE POC LAB TO COLLECT [POC] QIDACANDBED 09/15/19 11:30 GLUCOSE POC LAB TO COLLECT [POC] QIDACANDBED 09/15/19 16:30 GLUCOSE POC LAB TO COLLECT [POC] QIDACANDBED 09/15/19 21:00 GLUCOSE POC LAB TO COLLECT [POC] QIDACANDBED 09/16/19 07:30 GLUCOSE POC LAB TO COLLECT [POC] QIDACANDBED 09/16/19 11:30 GLUCOSE POC LAB TO COLLECT [POC] QIDACANDBED 09/16/19 16:30 GLUCOSE POC LAB TO COLLECT [POC] QIDACANDBED 09/16/19 21:00 GLUCOSE POC LAB TO COLLECT [POC] QIDACANDBED 09/17/19 07:30 GLUCOSE POC LAB TO COLLECT [POC] QIDACANDBED 09/17/19 11:30 GLUCOSE POC LAB TO COLLECT [POC] QIDACANDBED 09/17/19 16:30 GLUCOSE POC LAB TO COLLECT [POC] QIDACANDBED 09/17/19 21:00 GLUCOSE POC LAB TO COLLECT [POC] QIDACANDBED 09/18/19 07:30 GLUCOSE POC LAB TO COLLECT [POC] QIDACANDBED - Plan Plan:: ASSESSMENT / PLAN chief complaint: bloody stool This is a 64 year old male presents to the ER with Carmela via POV. He reports abdominal pain for the past 2 days, this morning at 0100 got up to go to the bathroom - had a large red colored stool became very sweating and nearly fainted. He then got up and almost fell over again. decided come to the ER. Past history of GI bleed on March 2016, he had EGD which showed a bleeding ulcer. Colonoscopy age 50 yrs an at 60 yrs, with last one September 2016. showed a diverticulitis without active bleeding. Cardiac: 07-22-2019 stents placed x 2 for blockage. last cardiac appt. 2018 reports all is well. has been going to Cardiac Rehab for the past 3 weeks. 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 labs: CBC, BMP -Surgical follow-up per Dr. Zepeda History of Cardiac Stents x2 07-22-2019-currently on Plavix and aspirin -continue cardiac medication -telemetry Diabetes type 2 - reports takes insulin daily, had been a diabetic for at least 15 years or more. -Long acting insulin 20 units daily -bedside blood glucose 4 times a day -Low-dose sliding scale Humalog Maintenance issues -Orders home meds reviewed and ordered as appropriate -Nutrition: Clear liquid diet -Longo catheter not indicated at this time -DVT: SCD -PPI; Protonix as above CODE STATUS: FULL Admission status: Admit to ICU This Patient is Admitted for Inpatient Services and is Medically Appropriate and Meets Medical Necessity for Inpatient Admission. I Reasonably Expect the Patient will Require Inpatient Services that Span a Period of Over 2 Midnights. My Rationale for Medically Necessary Inpatient Care will be Found in the Admission History & Physical and Progress Notes. I Reasonably Expect the Patient to be Discharged or Transferred within 96 Hours After Admission to this [facility]. Disposition: home Primary care provider: Seun Cuellar NP Hospitalist: Dr. Frazier
--- NOTE | 2019-09-13 10:37 | OR ---
DATE OF PROCEDURE: 09/13/2019 SURGEON: Casey Zepeda MD PROCEDURE: Esophagogastroduodenoscopy. FINDINGS: 1. Large amount of solid retained food in stomach. 2. Duodenal ulcers x3. COMPLICATION: None. BIOLOGY TEACHER: None. ANESTHESIA: MAC. PREOPERATIVE DIAGNOSIS: Gastrointestinal bleeding. POSTOPERATIVE DIAGNOSIS: Gastrointestinal bleeding. RISKS: Risks, benefits, alternatives, and limitations including but not limited to infection, bleeding, and aspiration were explained to the patient, who wished to proceed. PROCEDURE IN DETAIL: The patient was placed in the left lateral decubitus position. The EGD scope was introduced and advanced atraumatically to second part of the duodenum. Within the duodenum itself, the patient had 3 duodenal ulcers; 1 had a clot, the other 2 were eschar type. There was no evidence of perforation. No evidence of active bleeding. Within the stomach itself, very large amount of solid food material was remaining. On retroflexion, no abnormalities were noted. The GE junction was normal. The air was removed from the stomach. The patient tolerated the procedure well. A biopsy was also performed in the duodenum for evaluation for H. pylori. Casey Zepeda MD /[id number]
[2019-09-13] MEDS: Insulin Lispro 100 Unit/ML 3 ML KwikPen SUBCUT SCH ×3 (11:14→21:13)
[2019-09-13] MEDS ORDERED: Non-Formulary Medication 1 Each (Pravastatin Sodium [Pravastatin Sodium] 80 MG) PO SCH (21:00)
[2019-09-13] MEDS ORDERED: Losartan 25 MG Tab PO SCH (21:00)
[2019-09-13] MEDS ORDERED: Pravastatin 20 MG Tab PO SCH (21:00)
[2019-09-13] MEDS: Rosuvastatin 10 MG Tab PO SCH (21:12)
[2019-09-14] MEDS: Sodium Chloride 0.9% 1,000 ML IV SCH (03:00)
[2019-09-14] MEDS: Sodium Chloride 0.9% 100 ML with Pantoprazole 80 MG IV SCH ×4 (04:42→14:44)
[2019-09-14] MEDS: Octreotide 500 MCG in Sodium Chloride 0.9% 497.5 ML IV SCH (04:43)
[2019-09-14] MEDS: Insulin Lispro 100 Unit/ML 3 ML KwikPen SUBCUT SCH ×4 (07:52→20:22)
[2019-09-14] MEDS: Insulin Glargine,Human Rec. Analog 100 Units/ML 3 ML Pen SUBCUT SCH (08:42)
[2019-09-14] MEDS: Clopidogrel 75 MG Tab PO SCH (08:43)
[2019-09-14] MEDS: Aspirin 81 MG Tab.EC PO SCH (08:43)
--- NOTE | 2019-09-14 09:27 | PCM.PN ---
- General Info Date of Service: 09/14/19 Subjective Update: Mr. Avilez has remained stable since yesterday morning, total hemoglobin drop of approximately 4 units. Hemoglobin from last night to this morning has remained stable, he has had no hematemesis or melena. Epigastric pain has for the most part resolved. Functional Status: Reports: Pain Controlled, Tolerating Diet, Ambulating, Urinating - Review of Systems General: Reports: No Symptoms Pulmonary: Reports: No Symptoms Cardiovascular: Reports: No Symptoms Gastrointestinal: Reports: No Symptoms - Patient Data Vitals - Most Recent: Last Vital Signs Temp 98.5 F 09/14/19 04:00 Pulse 57 L 09/14/19 09:00 Resp 11 L 09/14/19 09:00 BP 114/54 L 09/14/19 09:00 Pulse Ox 97 09/14/19 09:00 Orthostatic Blood Pressure [ 106/64 Standing] Orthostatic Blood Pressure [ 100/59 Sitting] Orthostatic Blood Pressure [ 133/69 Supine] Weight - Most Recent: 201 lb 6.4 oz I&O - Last 24 Hours: Intake & Output 09/13/19 09/14/19 09/14/19 22:59 06:59 14:59 Intake Total 1274 2657 553 Output Total 700 Balance 574 2657 553 Lab Results Last 24 Hours: Laboratory Results - last 24 hr 09/13/19 09/13/19 09/13/19 Range/Units 02:50 11:03 17:14 WBC (4.5-11.0) K/uL RBC (4.30-5.90) M/uL Hgb 9.7 L 8.6 L (12.0-15.0) g/dL Hct (40.0-54.0) % MCV (80-98) fL MCH (27-31) pg MCHC (32-36) % Plt Count (150-400) K/uL Neut % (Auto) (36-66) % Lymph % (Auto) (24-44) % [place] % (Auto) (2-6) % Eos % (Auto) (2-4) % Baso % (Auto) (0-1) % Sodium (140-148) mmol/L Potassium (3.6-5.2) mmol/L Chloride (100-108) mmol/L Carbon Dioxide (21-32) mmol/L Anion Gap (5.0-14.0) mmol/L BUN (7-18) mg/dL Creatinine (0.8-1.3) mg/dL Est Cr Clr Drug Dosing mL/min Estimated GFR (MDRD) (>60) Glucose (74-106) mg/dL Calcium (8.5-10.1) mg/dL Crossmatch See Detail 09/13/19 09/14/19 09/14/19 Range/Units 22:55 05:20 05:20 WBC 6.6 (4.5-11.0) K/uL RBC 2.69 L (4.30-5.90) M/uL Hgb 8.1 L 8.0 L (12.0-15.0) g/dL Hct 25.4 L (40.0-54.0) % MCV 94 (80-98) fL MCH 30 (27-31) pg MCHC 32 (32-36) % Plt Count 123 L (150-400) K/uL Neut % (Auto) 60 (36-66) % Lymph % (Auto) 27 (24-44) % [place] % (Auto) 9 H (2-6) % Eos % (Auto) 3 (2-4) % Baso % (Auto) 1 (0-1) % Sodium 144 (140-148) mmol/L Potassium 3.8 (3.6-5.2) mmol/L Chloride 111 H (100-108) mmol/L Carbon Dioxide 26 (21-32) mmol/L Anion Gap 10.8 (5.0-14.0) mmol/L BUN 34 H (7-18) mg/dL Creatinine 1.2 (0.8-1.3) mg/dL Est Cr Clr Drug Dosing 72.31 mL/min Estimated GFR (MDRD) > 60 (>60) Glucose 98 (74-106) mg/dL Calcium 7.4 L (8.5-10.1) mg/dL Crossmatch Jose Results Last 24 Hours: Microbiology 09/13/19 03:48 Stool Occult Blood ([facility]) - Final Stool / Feces Med Orders - Current: Current Medications Acetaminophen (Tylenol) 650 mg PO Q4H PRN PRN Reason: Pain (Mild 1-3)/fever Albuterol (Proventil Neb Soln) 2.5 mg NEB Q4H PRN PRN Reason: Shortness Of Breath/wheezing Aspirin (Halfprin) 81 mg PO DAILY [facility] Last Admin: 09/14/19 08:43 Dose: 81 mg Clopidogrel Bisulfate (Plavix) 75 mg PO DAILY [facility] Last Admin: 09/14/19 08:43 Dose: 75 mg Dextrose (Glutose 15) 15 gm PO ONETIME PRN PRN Reason: Hypoglycemia Dextrose/Water (Dextrose 50% In Water) 50 ml IV ONETIME PRN PRN Reason: Hypoglycemia Pantoprazole Sodium 80 mg/ (Sodium Chloride) 100 mls @ 10 mls/hr IV .Q10H [facility] Last Admin: 09/14/19 04:42 Dose: 10 mls/hr Insulin Glargine (Lantus Solostar) 20 units SUBCUT DAILY [facility] Last Admin: 09/14/19 08:42 Dose: 20 units Insulin Human Lispro (Humalog) 0 unit SUBCUT QIDACANDBED [facility]; Protocol Last Admin: 09/14/19 07:52 Dose: Not Given Melatonin (Melatonin) 6 mg PO BEDTIME PRN PRN Reason: Sleep Morphine Sulfate (Morphine) 2 mg IVPUSH Q2H PRN PRN Reason: Pain (severe 7-10) Ondansetron HCl (Zofran Odt) 4 mg PO Q6H PRN PRN Reason: Nausea able to take PO Ondansetron HCl (Zofran) 4 mg IV Q4H PRN PRN Reason: Nausea/Vomiting Oxycodone HCl (Oxycodone) 5 mg PO Q4H PRN PRN Reason: Pain (moderate 4-6) Rosuvastatin Calcium (Crestor) 20 mg PO BEDTIME [facility] Last Admin: 09/13/19 21:12 Dose: 20 mg Sodium Chloride (Saline Flush) 10 ml FLUSH ASDIRECTED PRN PRN Reason: Keep Vein Open Discontinued Medications Epinephrine HCl (Adrenalin) Confirm Administered Dose 1 mg .ROUTE .STK-MED ONE Stop: 09/13/19 07:02 Fentanyl (Sublimaze) Confirm Administered Dose 100 mcg .ROUTE .STK-MED ONE Stop: 09/13/19 07:37 Sodium Chloride (Normal Saline) 1,000 mls @ 125 mls/hr IV ASDIRECTED [facility] Last Admin: 09/14/19 03:00 Dose: 125 mls/hr Sodium Chloride (Normal Saline) 1,000 mls @ 999 mls/min IV .BOLUS ONE Stop: 09/13/19 06:13 Last Admin: 09/13/19 06:24 Dose: 999 mls/min Octreotide Acetate 500 mcg/ (Sodium Chloride) 500 mls @ 50 mls/hr IV Q10H [facility] Last Admin: 09/14/19 04:43 Dose: 50 mcg/hr, 50 mls/hr Losartan Potassium (Cozaar) 25 mg PO BEDTIME [facility] Midazolam HCl (Versed 1 Mg/Ml) Confirm Administered Dose 2 mg .ROUTE .STK-MED ONE Stop: 09/13/19 07:37 Octreotide Acetate (Sandostatin) 50 mcg IVPUSH ONETIME ONE Stop: 09/13/19 08:16 Last Admin: 09/13/19 08:33 Dose: 50 mcg Pantoprazole Sodium (Protonix Iv) 80 mg IVPUSH .BOLUS [facility] Last Admin: 09/13/19 04:16 Dose: 80 mg Pantoprazole Sodium (Protonix Iv) 40 mg IV Q12H [facility] Propofol (Diprivan 20 Ml) Confirm Administered Dose 200 mg .ROUTE .STK-MED ONE Stop: 09/13/19 07:37 - Exam Quality Assessment: DVT Prophylaxis General: Alert, Oriented, Cooperative, No Acute Distress Lungs: Clear to Auscultation, Normal Respiratory Effort Cardiovascular: Regular Rate, Regular Rhythm, No Murmurs GI/Abdominal Exam: Soft, Non-Tender, No Organomegaly, No Distention Extremities: Non-Tender, No Pedal Edema Sepsis Event Note - Evaluation Sepsis Screening Result: No Definite Risk - Focused Exam Vital Signs: Vital Signs Temp Pulse Resp BP Pulse Ox 09/14/19 09:00 57 L 11 L 114/54 L 97 09/14/19 08:00 58 L 11 L 111/51 L 96 09/14/19 07:00 54 L 13 106/55 L 96 09/14/19 06:00 51 L 11 L 97/49 L 95 09/14/19 05:00 52 L 12 107/51 L 96 09/14/19 04:00 98.5 F 49 L 10 L 93/46 L 94 L 09/14/19 03:00 49 L 11 L 91/46 L 95 09/14/19 02:00 52 L 12 97/49 L 95 09/14/19 01:00 98.4 F 55 L 10 L 101/52 L 95 09/14/19 00:00 53 L 14 94/45 L 98 09/13/19 23:00 52 L 12 100/52 L 95 09/13/19 22:00 12 100/50 L 96 Date Exam was Performed: 09/14/19 Time Exam was Performed: 09:23 - Problem List Review Problem List Initiated/Reviewed/Updated: Yes - My Orders Last 24 Hours: My Active Orders 09/13/19 09:00 Sodium Chloride 0.9% [Normal Saline] 100 ml Pantoprazole [ProTONIX IV] 80 mg IV 10 mls/hr 09/13/19 09:04 Blood Glucose Check, Bedside [RC] QIDACANDBED Communication Order [RC] STAT Diabetes Education [RC] Click to Edit Notify Provider [RC] PRN Dextrose 50% in Water 50 ml IV ONETIME PRN Dextrose [Glutose 15] 15 gm PO ONETIME PRN 09/13/19 11:00 Insulin Lispro [HumaLOG] See Protocol SUBCUT QIDACANDBED 09/13/19 21:00 Rosuvastatin [Crestor] 20 mg PO BEDTIME 09/14/19 09:00 Aspirin [Halfprin] 81 mg PO DAILY Clopidogrel [Plavix] 75 mg PO DAILY 09/14/19 09:13 Convert IV to Saline Lock [OM.PC] Routine 09/14/19 13:00 HGB [HEMOGLOBIN] [HEME] Stat 09/14/19 21:00 HGB [HEMOGLOBIN] [HEME] Stat 09/14/19 Breakfast GI Soft Low Fiber [Soft Diet] [DIET] 09/15/19 05:00 BASIC METABOLIC PANEL,BMP [CHEM] Timed CBC WITH AUTO DIFF [HEME] Timed 09/15/19 07:30 GLUCOSE POC LAB TO COLLECT [POC] QIDACANDBED 09/15/19 11:30 GLUCOSE POC LAB TO COLLECT [POC] QIDACANDBED 09/15/19 16:30 GLUCOSE POC LAB TO COLLECT [POC] QIDACANDBED 09/15/19 21:00 GLUCOSE POC LAB TO COLLECT [POC] QIDACANDBED 09/16/19 07:30 GLUCOSE POC LAB TO COLLECT [POC] QIDACANDBED 09/16/19 11:30 GLUCOSE POC LAB TO COLLECT [POC] QIDACANDBED 09/16/19 16:30 GLUCOSE POC LAB TO COLLECT [POC] QIDACANDBED 09/16/19 21:00 GLUCOSE POC LAB TO COLLECT [POC] QIDACANDBED 09/17/19 07:30 GLUCOSE POC LAB TO COLLECT [POC] QIDACANDBED 09/17/19 11:30 GLUCOSE POC LAB TO COLLECT [POC] QIDACANDBED 09/17/19 16:30 GLUCOSE POC LAB TO COLLECT [POC] QIDACANDBED 09/17/19 21:00 GLUCOSE POC LAB TO COLLECT [POC] QIDACANDBED 09/18/19 07:30 GLUCOSE POC LAB TO COLLECT [POC] QIDACANDBED - Plan Plan:: ASSESSMENT AND PLAN Bleeding duodenal ulcer-history of previous upper GI bleed 2 years ago. Improved from admission, hemoglobin stable overnight. 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 labs: CBC, BMP -Surgical follow-up per Dr. Zepeda History of Cardiac Stents x2 07-22-2019-currently on Plavix and aspirin -continue cardiac medication -telemetry Diabetes type 2 - reports takes insulin daily, had been a diabetic for at least 15 years or more. -Long acting insulin 20 units daily -bedside blood glucose 4 times a day -Low-dose sliding scale Humalog Maintenance issues -Orders home meds reviewed and ordered as appropriate -Nutrition: Soft low residue diet -Longo catheter not indicated at this time -DVT: SCD -PPI; Protonix as above CODE STATUS: FULL Admission status: Admit to ICU This Patient is Admitted for Inpatient Services and is Medically Appropriate and Meets Medical Necessity for Inpatient Admission. I Reasonably Expect the Patient will Require Inpatient Services that Span a Period of Over 2 Midnights. My Rationale for Medically Necessary Inpatient Care will be Found in the Admission History & Physical and Progress Notes. I Reasonably Expect the Patient to be Discharged or Transferred within 96 Hours After Admission to this [facility]. Disposition: home Primary care provider: Seun Cuellar NP Hospitalist: Dr. Frazier
[2019-09-14] MEDS: Rosuvastatin 10 MG Tab PO SCH (20:22)
[2019-09-15] MEDS: Sodium Chloride 0.9% 100 ML with Pantoprazole 80 MG IV SCH ×4 (00:39→13:30)
[2019-09-15] MEDS: Insulin Lispro 100 Unit/ML 3 ML KwikPen SUBCUT SCH ×3 (07:41→16:25)
[2019-09-15] MEDS ORDERED: Potassium Chloride 20 MEQ Tab.ER PO ONE (08:45)
[2019-09-15] MEDS: Ferrous Sulfate 325 MG Tab PO SCH ×2 (08:48→16:25)
[2019-09-15] MEDS: Insulin Glargine,Human Rec. Analog 100 Units/ML 3 ML Pen SUBCUT SCH (08:48)
[2019-09-15] MEDS: Aspirin 81 MG Tab.EC PO SCH (08:49)
[2019-09-15] MEDS: Clopidogrel 75 MG Tab PO SCH (08:49)
--- NOTE | 2019-09-15 09:32 | PCM.PN ---
- General Info Date of Service: 09/15/19 Subjective Update: Mr. Nichols has had further slow drop in hemoglobin over the last 24 hours, currently 7.8. He has not had hematemesis or melena. Remains on Plavix and aspirin because of his recent coronary artery stents. Currently denies any chest pain or pressure or shortness of breath. Functional Status: Reports: Tolerating Diet, Urinating - Review of Systems General: Reports: Weakness. Denies: Fever, Chills Pulmonary: Reports: No Symptoms Cardiovascular: Reports: No Symptoms Gastrointestinal: Reports: No Symptoms - Patient Data Vitals - Most Recent: Last Vital Signs Temp 98.7 F 09/15/19 06:00 Pulse 57 L 09/15/19 08:00 Resp 23 H 09/15/19 08:00 BP 141/54 H 09/15/19 08:00 Pulse Ox 97 09/15/19 08:00 Orthostatic Blood Pressure [ 129/57 Standing] Orthostatic Blood Pressure [ 93/51 Sitting] Orthostatic Blood Pressure [ 115/55 Supine] Weight - Most Recent: 201 lb 6.4 oz I&O - Last 24 Hours: Intake & Output 09/14/19 09/15/19 09/15/19 22:59 06:59 14:59 Intake Total 1039 417 Output Total 450 Balance 1039 -33 Lab Results Last 24 Hours: Laboratory Results - last 24 hr 09/14/19 09/14/19 09/15/19 Range/Units 12:48 21:10 04:50 WBC 5.8 (4.5-11.0) K/uL RBC 2.63 L (4.30-5.90) M/uL Hgb 8.6 L 7.7 L 7.8 L (12.0-15.0) g/dL Hct 24.5 L (40.0-54.0) % MCV 93 (80-98) fL MCH 30 (27-31) pg MCHC 32 (32-36) % Plt Count 129 L (150-400) K/uL Neut % (Auto) 67 H (36-66) % Lymph % (Auto) 20 L (24-44) % [place] % (Auto) 9 H (2-6) % Eos % (Auto) 4 (2-4) % Baso % (Auto) 1 (0-1) % Sodium (140-148) mmol/L Potassium (3.6-5.2) mmol/L Chloride (100-108) mmol/L Carbon Dioxide (21-32) mmol/L Anion Gap (5.0-14.0) mmol/L BUN (7-18) mg/dL Creatinine (0.8-1.3) mg/dL Est Cr Clr Drug Dosing mL/min Estimated GFR (MDRD) (>60) Glucose (74-106) mg/dL Calcium (8.5-10.1) mg/dL 09/15/19 Range/Units 04:50 WBC (4.5-11.0) K/uL RBC (4.30-5.90) M/uL Hgb (12.0-15.0) g/dL Hct (40.0-54.0) % MCV (80-98) fL MCH (27-31) pg MCHC (32-36) % Plt Count (150-400) K/uL Neut % (Auto) (36-66) % Lymph % (Auto) (24-44) % [place] % (Auto) (2-6) % Eos % (Auto) (2-4) % Baso % (Auto) (0-1) % Sodium 144 (140-148) mmol/L Potassium 3.3 L (3.6-5.2) mmol/L Chloride 110 H (100-108) mmol/L Carbon Dioxide 27 (21-32) mmol/L Anion Gap 10.3 (5.0-14.0) mmol/L BUN 20 H (7-18) mg/dL Creatinine 1.2 (0.8-1.3) mg/dL Est Cr Clr Drug Dosing 72.31 mL/min Estimated GFR (MDRD) > 60 (>60) Glucose 91 (74-106) mg/dL Calcium 7.6 L (8.5-10.1) mg/dL Med Orders - Current: Current Medications Acetaminophen (Tylenol) 650 mg PO Q4H PRN PRN Reason: Pain (Mild 1-3)/fever Albuterol (Proventil Neb Soln) 2.5 mg NEB Q4H PRN PRN Reason: Shortness Of Breath/wheezing Aspirin (Halfprin) 81 mg PO DAILY [facility] Last Admin: 09/15/19 08:49 Dose: 81 mg Clopidogrel Bisulfate (Plavix) 75 mg PO DAILY [facility] Last Admin: 09/15/19 08:49 Dose: 75 mg Dextrose (Glutose 15) 15 gm PO ONETIME PRN PRN Reason: Hypoglycemia Dextrose/Water (Dextrose 50% In Water) 50 ml IV ONETIME PRN PRN Reason: Hypoglycemia Ferrous Sulfate (Ferrous Sulfate) 325 mg PO BIDMEALS [facility] Last Admin: 09/15/19 08:48 Dose: 325 mg Pantoprazole Sodium 80 mg/ (Sodium Chloride) 100 mls @ 10 mls/hr IV .Q10H [facility] Last Admin: 09/15/19 00:39 Dose: 10 mls/hr Insulin Glargine (Lantus Solostar) 20 units SUBCUT DAILY [facility] Last Admin: 09/15/19 08:48 Dose: 20 units Insulin Human Lispro (Humalog) 0 unit SUBCUT QIDACANDBED [facility]; Protocol Last Admin: 09/15/19 07:41 Dose: Not Given Melatonin (Melatonin) 6 mg PO BEDTIME PRN PRN Reason: Sleep Morphine Sulfate (Morphine) 2 mg IVPUSH Q2H PRN PRN Reason: Pain (severe 7-10) Ondansetron HCl (Zofran Odt) 4 mg PO Q6H PRN PRN Reason: Nausea able to take PO Ondansetron HCl (Zofran) 4 mg IV Q4H PRN PRN Reason: Nausea/Vomiting Oxycodone HCl (Oxycodone) 5 mg PO Q4H PRN PRN Reason: Pain (moderate 4-6) Pantoprazole Sodium (Protonix) 40 mg PO BIDAC [facility] Rosuvastatin Calcium (Crestor) 20 mg PO BEDTIME [facility] Last Admin: 09/14/19 20:22 Dose: 20 mg Sodium Chloride (Saline Flush) 10 ml FLUSH ASDIRECTED PRN PRN Reason: Keep Vein Open Discontinued Medications Epinephrine HCl (Adrenalin) Confirm Administered Dose 1 mg .ROUTE .STK-MED ONE Stop: 09/13/19 07:02 Fentanyl (Sublimaze) Confirm Administered Dose 100 mcg .ROUTE .STK-MED ONE Stop: 09/13/19 07:37 Sodium Chloride (Normal Saline) 1,000 mls @ 125 mls/hr IV ASDIRECTED [facility] Last Admin: 09/14/19 03:00 Dose: 125 mls/hr Sodium Chloride (Normal Saline) 1,000 mls @ 999 mls/min IV .BOLUS ONE Stop: 09/13/19 06:13 Last Admin: 09/13/19 06:24 Dose: 999 mls/min Octreotide Acetate 500 mcg/ (Sodium Chloride) 500 mls @ 50 mls/hr IV Q10H [facility] Last Admin: 09/14/19 04:43 Dose: 50 mcg/hr, 50 mls/hr Losartan Potassium (Cozaar) 25 mg PO BEDTIME [facility] Midazolam HCl (Versed 1 Mg/Ml) Confirm Administered Dose 2 mg .ROUTE .STK-MED ONE Stop: 09/13/19 07:37 Octreotide Acetate (Sandostatin) 50 mcg IVPUSH ONETIME ONE Stop: 09/13/19 08:16 Last Admin: 09/13/19 08:33 Dose: 50 mcg Pantoprazole Sodium (Protonix Iv) 80 mg IVPUSH .BOLUS [facility] Last Admin: 09/13/19 04:16 Dose: 80 mg Pantoprazole Sodium (Protonix Iv) 40 mg IV Q12H [facility] Potassium Chloride (Klor-Con M20) 40 meq PO ONETIME ONE Stop: 09/15/19 08:46 Last Admin: 09/15/19 08:48 Dose: 40 meq Propofol (Diprivan 20 Ml) Confirm Administered Dose 200 mg .ROUTE .STK-MED ONE Stop: 09/13/19 07:37 - Exam Quality Assessment: DVT Prophylaxis General: Alert, Oriented, Cooperative, No Acute Distress Lungs: Clear to Auscultation, Normal Respiratory Effort Cardiovascular: Regular Rate, Regular Rhythm, No Murmurs GI/Abdominal Exam: Soft, Non-Tender, No Organomegaly, No Distention Sepsis Event Note - Evaluation Sepsis Screening Result: No Definite Risk - Focused Exam Vital Signs: Vital Signs Temp Pulse Resp BP Pulse Ox 09/15/19 08:00 57 L 23 H 141/54 H 97 09/15/19 07:00 51 L 12 127/55 L 94 L 09/15/19 06:00 98.7 F 51 L 11 L 136/53 L 94 L 09/15/19 05:00 51 L 8 L 129/54 L 96 09/15/19 04:00 51 L 12 122/56 L 94 L 09/15/19 03:00 51 L 11 L 94/50 L 95 09/15/19 02:00 53 L 11 L 109/50 L 94 L 09/15/19 01:00 98.6 F 52 L 10 L 120/51 L 94 L 09/15/19 00:00 53 L 12 107/53 L 94 L 09/14/19 23:00 52 L 11 L 106/48 L 95 09/14/19 22:00 53 L 11 L 126/50 L 93 L Date Exam was Performed: 09/15/19 Time Exam was Performed: 09:27 - Problem List Review Problem List Initiated/Reviewed/Updated: Yes - My Orders Last 24 Hours: My Active Orders 09/14/19 09:00 Aspirin [Halfprin] 81 mg PO DAILY Clopidogrel [Plavix] 75 mg PO DAILY 09/14/19 09:13 Convert IV to Saline Lock [OM.PC] Routine 09/15/19 08:45 Ferrous Sulfate 325 mg PO BIDMEALS 09/15/19 09:17 Transfuse Red Blood Cells [COMM] Urgent 09/15/19 09:19 Pantoprazole [ProTONIX] 40 mg PO BIDAC 09/15/19 09:20 POTASSIUM,K [CHEM] Stat 09/15/19 09:24 Patient Status [ADT] Routine 09/15/19 16:00 HGB [HEMOGLOBIN] [HEME] Stat POTASSIUM,K [CHEM] Stat 09/15/19 22:00 HGB [HEMOGLOBIN] [HEME] Stat 09/16/19 05:00 BASIC METABOLIC PANEL,BMP [CHEM] Timed CBC WITH AUTO DIFF [HEME] Timed 09/16/19 07:30 GLUCOSE POC LAB TO COLLECT [POC] QIDACANDBED 09/16/19 11:30 GLUCOSE POC LAB TO COLLECT [POC] QIDACANDBED 09/16/19 16:30 GLUCOSE POC LAB TO COLLECT [POC] QIDACANDBED 09/16/19 21:00 GLUCOSE POC LAB TO COLLECT [POC] QIDACANDBED 09/17/19 07:30 GLUCOSE POC LAB TO COLLECT [POC] QIDACANDBED 09/17/19 11:30 GLUCOSE POC LAB TO COLLECT [POC] QIDACANDBED 09/17/19 16:30 GLUCOSE POC LAB TO COLLECT [POC] QIDACANDBED 09/17/19 21:00 GLUCOSE POC LAB TO COLLECT [POC] QIDACANDBED 09/18/19 07:30 GLUCOSE POC LAB TO COLLECT [POC] QIDACANDBED - Plan Plan:: ASSESSMENT AND PLAN Bleeding duodenal ulcer-history of previous upper GI bleed 2 years ago. Further drop in hemoglobin over the last 24 hours, suspect that he is slowly bleeding from the ulcer and secondary to ongoing anticoagulation. 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 labs: CBC, BMP -Surgical follow-up per Dr. Zepeda History of Cardiac Stents x2 07-22-2019-currently on Plavix and aspirin -continue cardiac medication -telemetry Diabetes type 2 - reports takes insulin daily, had been a diabetic for at least 15 years or more. -Long acting insulin 20 units daily -bedside blood glucose 4 times a day -Low-dose sliding scale Humalog Maintenance issues -Orders home meds reviewed and ordered as appropriate -Nutrition: Soft low residue diet -Longo catheter not indicated at this time -DVT: SCD -PPI; Protonix as above CODE STATUS: FULL Admission status: Admit to ICU This Patient is Admitted for Inpatient Services and is Medically Appropriate and Meets Medical Necessity for Inpatient Admission. I Reasonably Expect the Patient will Require Inpatient Services that Span a Period of Over 2 Midnights. My Rationale for Medically Necessary Inpatient Care will be Found in the Admission History & Physical and Progress Notes. I Reasonably Expect the Patient to be Discharged or Transferred within 96 Hours After Admission to this Critical [facility] Hospital. Disposition: home Primary care provider: Seun Cuellar NP Hospitalist: Dr. Frazier
[2019-09-15] MEDS: Pantoprazole 40 MG Tab.CR PO SCH ×2 (10:26→16:25)
--- NOTE | 2019-09-15 17:45 | PCM.DCSUM1 ---
Discharge Summary - Hospital Course Brief History: Mr. Avilez is a 64-year-old gentleman who was admitted through the emergency department with weakness, shortness of breath, headache, hematemesis, and melenic stool, secondary to an upper GI bleed. - Discharge Data Discharge Date: 09/15/19 Discharge Disposition: Home, Self-Care 01 Condition: Fair - Referral to Home Health Primary Care Physician: Seun Cuellar NP - Discharge Diagnosis/Problem(s) (1) Duodenal ulcer SNOMED Code(s): 41166378 ICD Code: K26.9 - DUODENAL ULCER, UNSP ACUTE OR CHRONIC, W/O HEMOR OR PERF Status: Acute Current Visit: Yes (2) Acute blood loss anemia SNOMED Code(s): 641128824 ICD Code: D62 - ACUTE POSTHEMORRHAGIC ANEMIA Status: Acute Current Visit : Yes (3) Diabetes type 2, controlled SNOMED Code(s): 18900477, 711905060 ICD Code: E11.9 - TYPE 2 DIABETES MELLITUS WITHOUT COMPLICATIONS Status: Chronic Priority: High Current Visit: Yes Qualifiers: Diabetes mellitus halfway insulin use: with halfway use (4) History of heart artery stent SNOMED Code(s): 060648727, 682845247 ICD Code: Z95.5 - PRESENCE OF CORONARY ANGIOPLASTY IMPLANT AND GRAFT Status : Chronic Priority: Low Current Visit: Yes - Patient Summary/Data Consults: Consultations 09/13/19 05:34 Consult to Physician [CONS] Routine Consulting Provider: Casey Zepeda Call Completed to Consulting Physician: Yes Reason for Consult: GI bleed Person Notified: Dr. Zepeda Date Notified: 09/13/19 Time Notified: 06:00 Hospital Course: Mr. Avilez is a 64-year-old gentleman who was admitted through the emergency department with hematemesis and melena, weakness, lightheadedness, secondary to an upper GI bleed. He had noted some epigastric abdominal discomfort which was fairly mild over the past few days. Yesterday he experienced shortness of breath weakness and lightheadedness with activity. He awoke early this morning and felt very weak and lightheaded, then had a melenic appearing stool. He came into the emergency department for further evaluation. Initial hemoglobin level was 11.7, with stable vital signs. Initial plan had been for admission to the medical surgical floor, but while still in the emergency department had an episode of marked weakness with hypotension and diaphoresis. During that period of time had a large melenic appearing stool and also an episode of hematemesis. While in the emergency department he was seen and evaluated by Dr. Zepeda, EGD was performed showing 3 duodenal ulcers, 1 of which had a clot at the base. He was not actively bleeding at the time of EGD. Was given IV fluids for hydration and started on continuous infusion of octreotide and Protonix after initial bolus doses. He did show further drop in hemoglobin down to 7.8. He was continued on his aspirin and Plavix, despite the bleeding, because of recent coronary artery stenting. Because of ongoing anticoagulation with a hemoglobin of 7.8 he was transfused 1 unit of red blood cells. Hemoglobin prior to discharge was 9.0 and he had shown no further evidence of active bleeding during the day. He had tolerated a soft low residue diet without difficulty. During hospitalization his metformin was held, he was treated with low-dose sliding scale Humalog as well as 4 times daily glucometers. Prior to discharge he had been in the chair as well as ambulating in the hallways without significant symptoms. While in the hospital he was started on iron supplement twice daily and was transitioned to oral Protonix 40 mg twice daily. He will remain on these medications after discharge. Follow- up appointment will be scheduled with his primary care provider within 1 week, hemoglobin level will be obtained at the time of that appointment. He is to return immediately to the emergency department if he notes recurrent symptoms of weakness, lightheadedness, shortness of breath, or recurrent hematemesis or melena. Activity will be as tolerated although he is instructed to hold off on cardiac rehab for 1 week. He will remain on a soft low residue diet over the next 10 days. - Patient Instructions Diet: GI Soft/Low Residue/Low Fiber Activity: As Tolerated Other/Special Instructions: Please schedule follow-up appointment with primary care provider within 1 week. Please obtain a hemoglobin level at the time of follow-up appointment. - Discharge Plan *PRESCRIPTION DRUG MONITORING PROGRAM REVIEWED*: Not Applicable *COPY OF PRESCRIPTION DRUG MONITORING REPORT IN PATIENT LARON: Not Applicable Prescriptions/Med Rec: Ferrous Sulfate 325 mg PO BIDMEALS #60 tablet Pantoprazole [ProTONIX] 40 mg PO BIDAC #30 tab.cr Home Medications: Home Meds Aspirin [Halfprin] 81 mg PO DAILY 07/03/19 [History] Fenofibrate 160 mg PO BEDTIME 07/03/19 [History] Insulin Glargine,Hum.Rec.Anlog [Basaglar Kwikpen U-100] 20 unit SQ DAILY [History] Losartan [Cozaar] 25 mg PO BEDTIME 07/03/19 [History] metFORMIN [Glucophage XR] 500 mg PO DAILY 07/03/19 [History] Clopidogrel Bisulfate [Clopidogrel] 75 mg PO DAILY 09/13/19 [History] Rosuvastatin Calcium 20 mg PO BEDTIME 09/13/19 [History] Ferrous Sulfate 325 mg PO BIDMEALS #60 tablet 09/15/19 [Rx] Pantoprazole [ProTONIX] 40 mg PO BIDAC #30 tab.cr 09/15/19 [Rx] Referrals: Seun Cuellar, [employer] [Primary Care Provider] - - Discharge Summary/Plan Comment DC Time >30 min.: No - Patient Data Vitals - Most Recent: Last Vital Signs Temp 98.3 F 09/15/19 15:40 Pulse 60 09/15/19 15:40 Resp 16 09/15/19 15:40 BP 136/60 09/15/19 15:40 Pulse Ox 94 L 09/15/19 15:40 Orthostatic Blood Pressure [ 129/57 Standing] Orthostatic Blood Pressure [ 93/51 Sitting] Orthostatic Blood Pressure [ 115/55 Supine] Weight - Most Recent: 201 lb 6.4 oz I&O - Last 24 hours: Intake & Output 09/15/19 09/15/19 09/15/19 06:59 14:59 22:59 Intake Total 417 319 Output Total 450 600 Balance -33 -281 Lab Results - Last 24 hrs: Laboratory Results - last 24 hr 09/13/19 09/14/19 09/15/19 Range/Units 02:50 21:10 04:50 WBC 5.8 (4.5-11.0) K/uL RBC 2.63 L (4.30-5.90) M/uL Hgb 7.7 L 7.8 L (12.0-15.0) g/dL Hct 24.5 L (40.0-54.0) % MCV 93 (80-98) fL MCH 30 (27-31) pg MCHC 32 (32-36) % Plt Count 129 L (150-400) K/uL Neut % (Auto) 67 H (36-66) % Lymph % (Auto) 20 L (24-44) % [place] % (Auto) 9 H (2-6) % Eos % (Auto) 4 (2-4) % Baso % (Auto) 1 (0-1) % Sodium (140-148) mmol/L Potassium (3.6-5.2) mmol/L Chloride (100-108) mmol/L Carbon Dioxide (21-32) mmol/L Anion Gap (5.0-14.0) mmol/L BUN (7-18) mg/dL Creatinine (0.8-1.3) mg/dL Est Cr Clr Drug Dosing mL/min Estimated GFR (MDRD) (>60) Glucose (74-106) mg/dL Calcium (8.5-10.1) mg/dL Blood Type O POSITIVE Gel Antibody Screen Negative Crossmatch See Detail 09/15/19 09/15/19 09/15/19 Range/Units 04:50 16:29 16:29 WBC (4.5-11.0) K/uL RBC (4.30-5.90) M/uL Hgb 9.0 L (12.0-15.0) g/dL Hct (40.0-54.0) % MCV (80-98) fL MCH (27-31) pg MCHC (32-36) % Plt Count (150-400) K/uL Neut % (Auto) (36-66) % Lymph % (Auto) (24-44) % [place] % (Auto) (2-6) % Eos % (Auto) (2-4) % Baso % (Auto) (0-1) % Sodium 144 (140-148) mmol/L Potassium 3.3 L 3.6 (3.6-5.2) mmol/L Chloride 110 H (100-108) mmol/L Carbon Dioxide 27 (21-32) mmol/L Anion Gap 10.3 (5.0-14.0) mmol/L BUN 20 H (7-18) mg/dL Creatinine 1.2 (0.8-1.3) mg/dL Est Cr Clr Drug Dosing 72.31 mL/min Estimated GFR (MDRD) > 60 (>60) Glucose 91 (74-106) mg/dL Calcium 7.6 L (8.5-10.1) mg/dL Blood Type Gel Antibody Screen Crossmatch Med Orders - Current: Current Medications Acetaminophen (Tylenol) 650 mg PO Q4H PRN PRN Reason: Pain (Mild 1-3)/fever Albuterol (Proventil Neb Soln) 2.5 mg NEB Q4H PRN PRN Reason: Shortness Of Breath/wheezing Aspirin (Halfprin) 81 mg PO DAILY [facility] Last Admin: 09/15/19 08:49 Dose: 81 mg Clopidogrel Bisulfate (Plavix) 75 mg PO DAILY [facility] Last Admin: 09/15/19 08:49 Dose: 75 mg Dextrose (Glutose 15) 15 gm PO ONETIME PRN PRN Reason: Hypoglycemia Dextrose/Water (Dextrose 50% In Water) 50 ml IV ONETIME PRN PRN Reason: Hypoglycemia Ferrous Sulfate (Ferrous Sulfate) 325 mg PO BIDMEALS [facility] Last Admin: 09/15/19 16:25 Dose: 325 mg Insulin Glargine (Lantus Solostar) 20 units SUBCUT DAILY [facility] Last Admin: 09/15/19 08:48 Dose: 20 units Insulin Human Lispro (Humalog) 0 unit SUBCUT QIDACANDBED [facility]; Protocol Last Admin: 09/15/19 16:25 Dose: Not Given Melatonin (Melatonin) 6 mg PO BEDTIME PRN PRN Reason: Sleep Morphine Sulfate (Morphine) 2 mg IVPUSH Q2H PRN PRN Reason: Pain (severe 7-10) Ondansetron HCl (Zofran Odt) 4 mg PO Q6H PRN PRN Reason: Nausea able to take PO Ondansetron HCl (Zofran) 4 mg IV Q4H PRN PRN Reason: Nausea/Vomiting Oxycodone HCl (Oxycodone) 5 mg PO Q4H PRN PRN Reason: Pain (moderate 4-6) Pantoprazole Sodium (Protonix) 40 mg PO BIDAC [facility] Last Admin: 09/15/19 16:25 Dose: 40 mg Rosuvastatin Calcium (Crestor) 20 mg PO BEDTIME [facility] Last Admin: 09/14/19 20:22 Dose: 20 mg Sodium Chloride (Saline Flush) 10 ml FLUSH ASDIRECTED PRN PRN Reason: Keep Vein Open Discontinued Medications Epinephrine HCl (Adrenalin) Confirm Administered Dose 1 mg .ROUTE .STK-MED ONE Stop: 09/13/19 07:02 Fentanyl (Sublimaze) Confirm Administered Dose 100 mcg .ROUTE .STK-MED ONE Stop: 09/13/19 07:37 Sodium Chloride (Normal Saline) 1,000 mls @ 125 mls/hr IV ASDIRECTED [facility] Last Admin: 09/14/19 03:00 Dose: 125 mls/hr Sodium Chloride (Normal Saline) 1,000 mls @ 999 mls/min IV .BOLUS ONE Stop: 09/13/19 06:13 Last Admin: 09/13/19 06:24 Dose: 999 mls/min Octreotide Acetate 500 mcg/ (Sodium Chloride) 500 mls @ 50 mls/hr IV Q10H [facility] Last Admin: 09/14/19 04:43 Dose: 50 mcg/hr, 50 mls/hr Pantoprazole Sodium 80 mg/ (Sodium Chloride) 100 mls @ 10 mls/hr IV .Q10H [facility] Last Admin: 09/15/19 13:30 Dose: Not Given Losartan Potassium (Cozaar) 25 mg PO BEDTIME [facility] Midazolam HCl (Versed 1 Mg/Ml) Confirm Administered Dose 2 mg .ROUTE .STK-MED ONE Stop: 09/13/19 07:37 Octreotide Acetate (Sandostatin) 50 mcg IVPUSH ONETIME ONE Stop: 09/13/19 08:16 Last Admin: 09/13/19 08:33 Dose: 50 mcg Pantoprazole Sodium (Protonix Iv) 80 mg IVPUSH .BOLUS [facility] Last Admin: 09/13/19 04:16 Dose: 80 mg Pantoprazole Sodium (Protonix Iv) 40 mg IV Q12H [facility] Potassium Chloride (Klor-Con M20) 40 meq PO ONETIME ONE Stop: 09/15/19 08:46 Last Admin: 09/15/19 08:48 Dose: 40 meq Propofol (Diprivan 20 Ml) Confirm Administered Dose 200 mg .ROUTE .STK-MED ONE Stop: 09/13/19 07:37 - Exam General: Reports: Alert, Oriented, Cooperative, No Acute Distress Lungs: Reports: Clear to Auscultation, Normal Respiratory Effort Cardiovascular: Reports: Regular Rate, Regular Rhythm, No Murmurs GI/Abdominal Exam: Soft, Non-Tender, No Organomegaly, No Distention
== END 2019-09-15 18:20 | disposition home or self-care (01) | DRG 378 ==
LOC: JP.ED 01:54 → JP.2SS 05:07 → JP.ICU 06:29 → JP.MS 09-15 15:09
PROVIDERS: ADMIT Hospitalist; ATTEND Surgery
PROC: 0DB98ZX Excision of Duodenum, Via Natural or Artificial Opening Endoscopic, Diagnostic (ICD-10-PCS; principal; 2019-09-13)
PROC: 30233N1 Transfusion of Nonautologous Red Blood Cells into Peripheral Vein, Percutaneous Approach (ICD-10-PCS; 2019-09-15)
DX: K26.0 Acute duodenal ulcer with hemorrhage (principal); D62 Acute posthemorrhagic anemia; E11.9 Type 2 diabetes mellitus without complications; I95.9 Hypotension, unspecified; H54.7 Unspecified visual loss; E78.00 Pure hypercholesterolemia, unspecified; K21.9 Gastro-esophageal reflux disease without esophagitis; Z87.442 Personal history of urinary calculi; Z95.5 Presence of coronary angioplasty implant and graft; Z79.4 Long term (current) use of insulin; Z79.899 Other long term (current) drug therapy; Z79.82 Long term (current) use of aspirin; Z79.01 Long term (current) use of anticoagulants; Z91.013 Allergy to seafood
CPT/HCPCS: 36415; 36430; 80048; 80053; 82272; 82962; 84132; 84484; 85018; 85025; 85610; 86850; 86900; 86901; 86920; 86922; 88305; 93005; 99284; A9270-GY; C9113; J0171; J1815; J1815-GY; J2250; J2354; J2704; J3010; J7030; J7040; J7050; P9016

== ENCOUNTER 2020-07-09 08:21 | Day surgery (SDC) | payer MEDICARE, BC ==
[2020-07-09] MEDS ORDERED: Sodium Chloride 0.9% 10 ML Syringe FLUSH PRN (09:00)
--- NOTE | 2020-07-09 11:08 | OR ---
DATE OF PROCEDURE: 07/09/2020 SURGEON: Pippa Lewis MD POSTOPERATIVE CARE: Postoperative care will be provided mainly at the [address] [place] [address] [facility] in conjunction with [facility]. PREOPERATIVE DIAGNOSIS: Cataract, right eye. POSTOPERATIVE DIAGNOSIS: Cataract, right eye. PROCEDURE: Phacoemulsification with intraocular lens placement, right eye. ANESTHESIA: Topical and intracameral. ESTIMATED BLOOD LOSS: Minimal. COMPLICATIONS: None. PATHOLOGY SPECIMENS: None. SURGICAL FINDINGS: None. INDICATION FOR PROCEDURE: The patient is a 65-year-old male with history of a visually significant cataract in the right eye, which interfered with activities of daily living. This consisted of a nuclear sclerosis cataract. Following careful discussion of the risks, benefits and alternatives to cataract extraction with intraocular lens placement including blindness and , the patient elected to proceed, and informed, written consent was obtained prior to the procedure. DESCRIPTION OF THE PROCEDURE: The patient was previously identified, and a anahi placed above the right eye. All sources, including the patient, indicated that the right eye was the correct eye. The patient was subsequently taken to the operating room where standard monitors were applied. The patient was then prepped and draped in the usual sterile fashion for ophthalmic surgery. Attention was first directed at the 12 o'clock position where a paracentesis port was fashioned. Shugar solution followed by Viscoat was instilled into the eye. Attention was then directed to the 8:30 position where a triplanar incision was made in a near-clear manner using a keratome. A continuous capsulorrhexis was then made using a combination of the cystotome and Utrata forceps. Hydrodissection was achieved using a balanced salt solution, and the lens rotated nicely. Phacoemulsification was then done using a modified [id number] technique without complication. Phaco time was 3.45 CDE. The remaining cortex was removed using the irrigation/aspiration handpiece. Provisc was then instilled into the eye. A Technis lens, model [id number], at 21.5 diopters was then placed in the capsular bag using an [place] injector. The remaining viscoelastic was removed using the irrigation/aspiration forceps. All wounds were then checked and found to be watertight. The lid speculum and drapes were removed. Maxitrol ointment was placed in the patient's right eye, and the eye was shielded. The patient tolerated the procedure well. The patient was instructed to follow up tomorrow. All needle and sponge counts were correct at the end of the procedure. Pippa Lewis MD /[id number]
== END 2020-07-09 10:53 | disposition home or self-care (01) ==
LOC: JP.SDS 08:21
PROVIDERS: ATTEND Ophthalmology
DX: E11.36 Type 2 diabetes mellitus with diabetic cataract (principal); Z95.5 Presence of coronary angioplasty implant and graft
CPT/HCPCS: 66984; V2632

== ENCOUNTER 2020-07-23 07:36 | Day surgery (SDC) | payer MEDICARE, BC ==
[2020-07-23] MEDS ORDERED: Sodium Chloride 0.9% 10 ML Syringe FLUSH PRN (08:00)
--- NOTE | 2020-07-23 11:27 | OR ---
DATE OF PROCEDURE: 07/23/2020 SURGEON: Pippa Lewis MD POSTOPERATIVE CARE: Postoperative care will be provided mainly at the [address] [place] [address] [facility] in conjunction with [facility]. PREOPERATIVE DIAGNOSIS: Cataract, left eye. POSTOPERATIVE DIAGNOSIS: Cataract, left eye. PROCEDURE: Phacoemulsification with intraocular lens placement, left eye. ANESTHESIA: Topical and intracameral. ESTIMATED BLOOD LOSS: Minimal. COMPLICATIONS: None. PATHOLOGY SPECIMENS: None. SURGICAL FINDINGS: None. INDICATION FOR PROCEDURE: The patient is a 65-year-old male with history of a visually significant cataract in the left eye, which interfered with activities of daily living. This consisted of a nuclear sclerosis cataract. Following careful discussion of the risks, benefits and alternatives to cataract extraction with intraocular lens placement including blindness and , the patient elected to proceed, and informed, written consent was obtained prior to the procedure. DESCRIPTION OF THE PROCEDURE: The patient was previously identified, and a anahi placed above the left eye. All sources, including the patient, indicated that the left eye was the correct eye. The patient was subsequently taken to the operating room where standard monitors were applied. The patient was then prepped and draped in the usual sterile fashion for ophthalmic surgery. Attention was first directed at the 12 o'clock position where a paracentesis port was fashioned. Shugar solution followed by Viscoat was instilled into the eye. Attention was then directed to the 8:30 position where a triplanar incision was made in a near-clear manner using a keratome. A continuous capsulorrhexis was then made using a combination of the cystotome and Utrata forceps. Hydrodissection was achieved using a balanced salt solution, and the lens rotated nicely. Phacoemulsification was then done using a modified [id number] technique without complication. Phaco time was 2.87 CDE. The remaining cortex was removed using the irrigation/aspiration handpiece. Provisc was then instilled into the eye. A Technis lens, model [id number], at 25.5 diopters was then placed in the capsular bag using an [place] injector. The remaining viscoelastic was removed using the irrigation/aspiration forceps. All wounds were then checked and found to be watertight. The lid speculum and drapes were removed. Maxitrol ointment was placed in the patient's left eye, and the eye was shielded. The patient tolerated the procedure well. The patient was instructed to follow up tomorrow. All needle and sponge counts were correct at the end of the procedure. Pippa Lewis MD /[id number]
== END 2020-07-23 09:40 | disposition home or self-care (01) ==
LOC: JP.SDS 07:36
PROVIDERS: ATTEND Ophthalmology
DX: E11.36 Type 2 diabetes mellitus with diabetic cataract (principal); I10 Essential (primary) hypertension; Z91.02 Food additives allergy status
CPT/HCPCS: 66984; V2632